=== PATIENT | female | born 1985 | race Two or more races ===

== ENCOUNTER 2017-07-06 22:18 | Inpatient (IN) | payer MEDICAID, OTHER ==
[~2017-07-06] VITALS: Ht 30.5 cm; Wt 0.5 kg
[2017-07-06] MEDS ORDERED: PREN-96 PO (23:38)
[2017-07-07 00:09] LABS: Alcohol, Urine < 3.0 mg/dL (0-5); Amphetamine Screen, Urine NEGATIVE (NEGATIVE); Barbiturate Scree,Urine NEGATIVE (NEGATIVE); Benzodiazephine Screen, Urine NEGATIVE (NEGATIVE); Cocaine Screen, Urine NEGATIVE (NEGATIVE); Opiate Scree,Urine NEGATIVE (NEGATIVE); Phencyclidine Screen, Urine NEGATIVE (NEGATIVE)
[2017-07-07 00:10] LABS: Urine Bacteria NONE SEEN /hpf (None Seen); Urine Blood 2+ /uL (Negative); Urine Specific Gravity 1.019 (1.001-1.035); Urine WBC 8 /hpf (0 - 5)
[2017-07-07 00:13] LABS: Cannabinoid Screen, Urine POSITIVE (NEGATIVE)
[2017-07-07] MEDS ORDERED: PENICILLIN G POT 5MIL/D5 50ML 50 ML IV ONE ×2 (00:15→00:30)
[2017-07-07] MEDS ORDERED: LACTATED RINGER'S 1,000 ML IV SCH (00:20)
[2017-07-07] MEDS ORDERED: LACT. RINGERS/OXYTOCIN 20UNITS 1,000 ML IV SCH ×2 (00:20→03:51)
[2017-07-07] MEDS ORDERED: PHISODERM TOP SOLN 240ML BTL TOP PRN (00:30)
[2017-07-07] MEDS ORDERED: DERMOPLAST 60ML BOTTLE TOP PRN (00:30)
[2017-07-07] MEDS ORDERED: NALBUPHINE HCL 10 MG/1ml INJECTION IV PRN (00:30)
[2017-07-07] MEDS ORDERED: WITCH HAZEL-GLYCERIN PAD TOP PRN (00:30)
[2017-07-07] MEDS ORDERED: LIDOCAINE 2%HCL (LOCAL ANESTH.) INJ 20ML MDV IJ ONE (00:30)
[2017-07-07] MEDS ORDERED: PROMETHAZINE HCL 25 MG/ML 1ML IV PRN (00:30)
[2017-07-07] MEDS ORDERED: LIDOCAINE 2%HCL (LOCAL ANESTH.) INJ 20ML MDV ONE (01:11)
[2017-07-07] MEDS ORDERED: PHISODERM TOP SOLN 240ML BTL TOP ONE (01:11)
[2017-07-07] MEDS ORDERED: DERMOPLAST 60ML BOTTLE TOP ONE (01:11)
[2017-07-07] MEDS ORDERED: WITCH HAZEL-GLYCERIN PAD TOP ONE (01:12)
[2017-07-07] MEDS ORDERED: LACT. RINGERS/OXYTOCIN 20UNITS 1,000 ML IV ONE (01:12)
[2017-07-07] MEDS ORDERED: IBUPROFEN 600 MG TAB PO PRN (03:00)
[2017-07-07] MEDS ORDERED: ACETAMINOPHEN 325 MG TAB PO PRN (03:00)
[2017-07-07 03:38] LABS: Albumin 2.4 g/dL (3.4-5.0); BUN/Creatinine Ratio 7.2; Calcium 8.2 mg/dL (8.5-10.1); Potassium 4.2 mmol/L (3.5-5.1)
[2017-07-07 03:40] LABS: Bilirubin, Total 0.4 mg/dL (0.2-1.0); Total Protein 5.8 g/dL (6.4-8.2)
[2017-07-07 03:57] LABS: Basophils # (auto) 0 uL; Basophils % (auto) 0.1 % (0.0-2.0); Eosinophils # (auto) 0 uL; Eosinophils % (auto) 0.2 % (0.0-7.0); Hematocrit 31.8 % (36.0-46.0); Hemoglobin 10.4 g/dL (12.2-16.2); Lymphocytes % (auto) 6.4 % (10.0-50.0); Mean Corpuscular Hemoglobin 30.8 pg (28.0-32.0); Mean Corpuscular Hgb Conc. 32.7 g/dL (32.0-36.0); Mean Corpuscular Volume 94.1 fL (80.0-100.0); Monocytes # (auto) 0.8 uL; Neutrophils # (auto) 13.5 uL; Neutrophils % (auto) 88.3 % (37.0-80.0); Platelet Count (auto) 244 10^3/uL (140-450); Red Blood Cells 3.38 10^6/uL (4.0-5.20); Red Cell Distribution Width 14.7 % (11.8-14.3); White Blood Cell 15.3 10^3/uL (4.4-10.8)
[2017-07-07 03:59] LABS: INR 0.92 (0.9-1.15); Partial Thromboplastin Time 35.3 sec (22.64-33.71)
[2017-07-07] MEDS ORDERED: PENICILLIN G POTASSIUM 2,500,000 UNITS in D5W 5% 50 ML IV SCH (04:30)
[2017-07-07 07:00] VITALS: BP 126/65
[2017-07-07 11:00] VITALS: BP 127/72
[2017-07-07 15:00] VITALS: BP 126/66
[2017-07-07] MEDS ORDERED: diphenhdrAMINE HCL 25 MG CAP PO PRN (15:45)
[2017-07-07 19:00] VITALS: BP 126/71
[2017-07-07] MEDS: HYDROCORTONE 1% TOPICAL CREAM 30 GM TUBE TOP SCH (21:27)
[2017-07-07] MEDS ORDERED: HYDROCORTONE 1% TOPICAL CREAM 30 GM TUBE TOP SCH (22:00)
[2017-07-07 23:44] VITALS: BP 120/66
[2017-07-08 03:09] LABS: RPR Non Reactive (Non Reactive)
[2017-07-08 03:36] VITALS: BP 116/60
[2017-07-08] MEDS: HYDROCORTONE 1% TOPICAL CREAM 30 GM TUBE TOP SCH ×2 (05:47→14:06)
[2017-07-08 08:00] VITALS: BP 121/67
[2017-07-08 08:14] LABS: Rubella Antibodies, IgG 1.51 index (Immune >0.99)
[2017-07-08 12:10] VITALS: BP 121/72
== END 2017-07-08 15:40 | disposition home or self-care (01) | DRG 560 ==
LOC: OBSVTOIN 22:18 → LDRP 22:18
PROVIDERS: ADMIT Obstetrics & Gynecology; ATTEND Obstetrics & Gynecology
PROC: 0KQM0ZZ Repair Perineum Muscle, Open Approach (ICD-10-PCS; principal; 2017-07-07)
PROC: 10E0XZZ Delivery of Products of Conception, External Approach (ICD-10-PCS; 2017-07-07)
DX: O62.3 Precipitate labor (principal); O77.0 Labor and delivery complicated by meconium in amniotic fluid; O70.1 Second degree perineal laceration during delivery; Z37.0 Single live birth; Z3A.41 41 weeks gestation of pregnancy
CPT/HCPCS: 36415; 59025; 59409; 80053; 80307; 81001; 81002; 85025; 85610; 85730; 86592; 86703; 86762; 86850; 86900; 86901; 87340; 96365; 96366; G0378; J2540; J2590; J7060